=== PATIENT | female | born 2000 | race Hispanic/Latino ===

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

== ENCOUNTER 2022-03-14 15:41 | Observation (INO) | payer MEDICAID ==
[2022-03-14] VITALS (26 sets, daily range): BP systolic 94–133; BP diastolic 35–63
[~2022-03-14] VITALS: Ht 165.1 cm; Wt 77.1 kg
[~2022-03-14 15:41] MED LIST: REGLAN10 MG PO
--- NOTE | 2022-03-14 16:00 | NUR ---
PATIENT AMBULATORY TO ROOM IN NAD. PROVIDER NOTIFIED OF PATIENT STATUS.
--- NOTE | 2022-03-14 17:00 | NUR ---
PT SITTING IN RM AWAITING RESULTS. CALL LIGHT WITHIN REACH.
[2022-03-14] MEDS ORDERED: MOTRIN800 MG PO (17:24)
[2022-03-14] MEDS ORDERED: TESSALON PERLE100 MG PO (17:24)
[2022-03-14] MEDS ORDERED: CEPACOL SORE T5.4 MG PO (17:24)
[2022-03-14] MEDS ORDERED: PREDNISONE50 MG PO (17:28)
[2022-03-14] MEDS ORDERED: BENADRYL25 M1 PO (17:28)
--- NOTE | 2022-03-14 18:00 | NUR ---
PT HAD A SEVERE ALLERGIC REACTION AND HAS BEEN MEDICATED. NON-REBREATHER APPLIED AT THIS TIME DUE TO SA02 OF 84%. POST NON-REBREATHER SA02 IS NOW 99%. EDP IN TO REASSESS PT. CALL LIGHT WITHIN REACH.
[2022-03-14 18:07] LABS: HEMOGLOBIN 13.3 g/dl (12.0-16.0); IMMATURE GRANULOCYTES 0.1 % (0.0-5.0); MEAN CELL VOLUME 83.9 fL CALC (80.0-100.0); MEAN CORPUSCULAR HGB 27.9 pG CALC (26.0-32.0); MEAN CORPUSCULAR HGB CONC 33.3 g/dL CAL (32.0-36.0); NEUT# 6.73 thou/uL (2.00-7.15); RED BLOOD COUNT 4.77 mill/uL (4.20-5.60); RED CELL DISTRI WIDTH 14.5 % (11.5-15.5)
[2022-03-14 18:26] LABS: ALBUMIN 4.5 g/dL (3.2-5.0); ALKALINE PHOSPHATASE 98 u/l (38-126); ANION GAP 17 (6-22 (CALC)); BUN 8 mg/dL (8-21); BUN/CREATININE RATIO 11 (12-20 (CALC)); CARBON DIOXIDE 24 mmol/l (22-30); CHLORIDE 100 mmol/l (95-108); CREATININE 0.7 mg/dL (0.5-1.0); GFR FOR AFR.AMER. > 60 ML/MIN (>=60 (CALC)); GFR OTHER RACES > 60 ML/MIN (>=60 (CALC)); POTASSIUM 3.6 mmol/l (3.5-5.1); SGOT/AST 35 u/l (14-36); SODIUM 137 mmol/l (137-146); TOTAL PROTEIN 7.4 g/dL (6.3-8.2)
[2022-03-14 18:27] LABS: BILIRUBIN, TOTAL 0.4 mg/dL (0.0-1.4)
--- NOTE | 2022-03-14 19:00 | NUR ---
PT RESTING IN RM AWAITING ADMISSION FOR OBSERVATION OVERNIGHT. CALL LIGHT WITHIN REACH.
--- NOTE | 2022-03-14 19:40 | NUR ---
PT TO CT VIA WHEELCHAIR IN NO APPARENT DISTRESS IN CARE OF CALL CENTER DIRECTOR.
--- NOTE | 2022-03-14 20:45 | NUR ---
REPORT GIVEN TO PUMA SORENSEN AT THIS TIME FOR ADMISSION.
--- NOTE | 2022-03-14 21:05 | NUR ---
21 yr old white female admitted icu5 per stretcher from er. transferred self to bed. bed weight obtained. pt has hives over entire body. denies resp diff. saline locks x2 in place. history obtained per pt & er record. oriented to room. fall precautions initiated.
--- NOTE | 2022-03-14 21:05 | NUR ---
Admission Note Report Given to: PUMA Transported by: X Wheelchair Stretcher Transported with: X Nurse Transporter X Patent IV X O2 [place]p[employer] Cutter Location: X ICU [facility]
[2022-03-15] VITALS (26 sets, daily range): BP systolic 80–121; BP diastolic 36–77
--- NOTE | 2022-03-15 00:01 | NUR ---
eyes closed. no distress. property assessment monitor shows sinus arrythmia.
--- NOTE | 2022-03-15 02:00 | NUR ---
resting quietly. no apparent distress.
--- NOTE | 2022-03-15 04:50 | NUR ---
lab here. blood drawn. no hives seen.
[2022-03-15 05:26] LABS: HEMATOCRIT 38.6 % (37.0-47.0); HEMOGLOBIN 12.9 g/dl (12.0-16.0); IMMATURE GRANULOCYTES 0.1 % (0.0-5.0); MEAN CELL VOLUME 84.1 fL CALC (80.0-100.0); MEAN CORPUSCULAR HGB 28.1 pG CALC (26.0-32.0); MEAN CORPUSCULAR HGB CONC 33.4 g/dL CAL (32.0-36.0); NEUT# 7.42 thou/uL (2.00-7.15); RED BLOOD COUNT 4.59 mill/uL (4.20-5.60); RED CELL DISTRI WIDTH 14.9 % (11.5-15.5)
[2022-03-15 05:36] LABS: BUN 9 mg/dL (8-21); BUN/CREATININE RATIO 15 (12-20 (CALC)); CHLORIDE 105 mmol/l (95-108); CREATININE 0.6 mg/dL (0.5-1.0); GFR FOR AFR.AMER. > 60 ML/MIN (>=60 (CALC)); GFR OTHER RACES > 60 ML/MIN (>=60 (CALC)); SODIUM 137 mmol/l (137-146)
[2022-03-15 05:56] LABS: ANION GAP 17 (6-22 (CALC)); CARBON DIOXIDE 19 mmol/l (22-30); POTASSIUM 4.4 mmol/l (3.5-5.1)
--- NOTE | 2022-03-15 06:00 | NUR ---
eyes closed. no distress. cardiac rehabilitation program director shows sinus arrythmia.
--- NOTE | 2022-03-15 07:25 | NUR ---
pt awake in bed; no apparent distress noted; pt offers no complaints; assessment completed at this; pt alert and oriented; denies pain; no n/v noted; resp even and unlabored; lungs clear anterior; posterior wheezing noted; skin color wnl; ra; hr reg; strong pulses; no edema noted; sr on monitor; abd soft with bs present; no bm noted per senior mortgage underwriter; pt voiding clear yellow urine without complication; specimen obtained; #20 flushed and patent to lac; #20 flushed and patent to right hand; no redness or edema noted at site; no visible hives noted; pt denies eating any different foods; pt states she only took zara seltzer and IBU; plan of care explained; call light within reach; will continue to monitor
--- NOTE | 2022-03-15 08:01 | NUR ---
awake in bed eating breakfast; offers no complaints; no apparent distress noted; call light within reach; will continue to monitor
--- NOTE | 2022-03-15 08:20 | NUR ---
SA noted on monitor; no baseline EKG; orders received
--- NOTE | 2022-03-15 09:26 | NUR ---
Dr Gomez present at bedside to assess pt and discuss plan of care
[2022-03-15] MEDS ORDERED: PEPCID20 MG PO (09:58)
--- NOTE | 2022-03-15 10:10 | NUR ---
awake in bed; offers no complaints; no apparent distress noted; increased observation; will continue to monitor
[2022-03-15] MEDS ORDERED: PREDNISONE20 MG PO (12:06)
--- NOTE | 2022-03-15 12:09 | NUR ---
awake in bed; no apparent distress noted; pt offers no complaints; pt requesting discharge; MD informed pt does not want to wait until 3PM for discharge; per MD pt may be discharged at this time; will continue to monitor
--- NOTE | 2022-03-15 12:28 | NUR ---
discharge instructions reviewed with pt; pt states understanding; awaiting spouse form transportation
--- NOTE | 2022-03-15 12:52 | NUR ---
Discharge instructions given. Patient verbalizes understanding of same. Discharged in stable condition via Ambulatory to Home with spouse. All belongings sent with pt.
== END 2022-03-15 12:52 | disposition home or self-care (01) ==
LOC: ED 15:41 → ED-I 18:22 → ED 18:45 → ICU 18:46
PROVIDERS: Emergency Medicine; ADMIT Internal Medicine; ATTEND Internal Medicine
DX: T78.2XXA Anaphylactic shock, unspecified, initial encounter (principal); T63.481A Toxic effect of venom of other arthropod, accidental (unintentional), initial encounter; R09.02 Hypoxemia; J00 Acute nasopharyngitis [common cold]; B97.10 Unspecified enterovirus as the cause of diseases classified elsewhere; X58.XXXA Exposure to other specified factors, initial encounter; Z20.822 Contact with and (suspected) exposure to COVID-19
CPT/HCPCS: Q9967

== ENCOUNTER 2023-02-02 09:17 | Emergency (ER) | payer SELFPAY ==
[~2023-02-02] VITALS: Ht 165.1 cm; Wt 77.9 kg
[2023-02-02] VITALS (14 sets, daily range): BP systolic 106–124; BP diastolic 48–82
[~2023-02-02 09:17] MED LIST changes: +BENADRYL25 M1 PO; +CEPACOL SORE T5.4 MG PO; +MOTRIN800 MG PO; +PEPCID20 MG PO; +PREDNISONE20 MG PO; +PREDNISONE50 MG PO; +TESSALON PERLE100 MG PO
[2023-02-02 10:28] LABS: BASO% 0.3 % (0-3); EOS% 0.7 % (0-8); HEMATOCRIT 41.2 % (37.0-47.0); HEMOGLOBIN 13.9 g/dl (12.0-16.0); IMMATURE GRANULOCYTES 0.1 % (0.0-5.0); LYMPH% 11.4 % (15-41); MEAN CORPUSCULAR HGB 30.2 pG CALC (26.0-32.0); MEAN CORPUSCULAR HGB CONC 33.7 g/dL CAL (32.0-36.0); MONO% 4.6 % (2-13); NEUT# 7.28 thou/uL (2.00-7.15); NEUT% 82.9 % (42-76); RED BLOOD COUNT 4.61 mill/uL (4.20-5.60); RED CELL DISTRI WIDTH 12.7 % (11.5-15.5)
[2023-02-02 10:29] LABS: MEAN CELL VOLUME 89.4 fL CALC (80.0-100.0)
[2023-02-02 10:42] LABS: ALBUMIN 4.8 g/dL (3.2-5.0); ALKALINE PHOSPHATASE 77 u/l (38-126); ANION GAP 16 (6-22 (CALC)); BILIRUBIN, TOTAL 0.7 mg/dL (0.02-1.3); BUN 13 mg/dL (7-17); BUN/CREATININE RATIO 15 (12-20 (CALC)); CARBON DIOXIDE 22 mmol/l (22-30); CHLORIDE 102 mmol/l (95-108); CREATININE 0.9 mg/dL (0.5-1.0); GFR FOR AFR.AMER. > 60 ML/MIN (>=60 (CALC)); GFR OTHER RACES > 60 ML/MIN (>=60 (CALC)); POTASSIUM 3.4 mmol/l (3.5-5.1); SGOT/AST 32 u/l (14-36); SODIUM 137 mmol/l (137-146); TOTAL PROTEIN 8.5 g/dL (6.3-8.2)
[2023-02-02] MEDS ORDERED: ALL DAY10 MG PO (12:02)
[2023-02-02] MEDS ORDERED: PREDNISONE50 MG PO (12:02)
== END 2023-02-02 12:15 | disposition home or self-care (01) | DRG 607 ==
LOC: ED 09:17
PROVIDERS: Family Medicine
DX: L50.0 Allergic urticaria (principal); Z91.09 Other allergy status, other than to drugs and biological substances